=== PATIENT | female | born 1955 | race Caucasian/White ===

== ENCOUNTER 2019-11-20 13:15 | Outpatient (CLI) | payer OTHER, SELFPAY ==
--- NOTE | 2019-11-20 13:29 | MM_ITS ---
WS: [id number] BILATERAL DIGITAL SCREENING MAMMOGRAPHY WITH CAD CLINICAL INFORMATION: SCREENING HISTORY: Screening mammogram. No current complaints. COMPARISON: August 30, 2018 TECHNIQUE: Bilateral CC and MLO views. FINDINGS: Scattered fibroglandular densities bilaterally. Lucent centered calcifications. No suspicious focal m ass, asymmetry, calcifications, or architectural distortion. No evidence of malignancy. MM/[place] [id number] IMPRESSION: BI-RADS: 2-Benign FOLLOW UP: 1 Year Follow-up Recommend return to annual screening mammography.
== END 2019-11-20 13:16 | disposition home or self-care (01) ==
PROVIDERS: Family Provider Family Medicine; Visit Provider Family Medicine
DX: Z12.31 Encounter for screening mammogram for malignant neoplasm of breast (principal)
CPT/HCPCS: 77067

== ENCOUNTER 2020-07-24 14:44 | Emergency (ER) | payer OTHER, SELFPAY ==
[2020-07-24 14:45] VITALS: BP 155/73; PULSE 94; RESP 18; TEMP 36.7; O2SAT 94; BMI 32.5
--- NOTE | 2020-07-24 15:05 | ECG_ITS ---
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 Measurements Intervals [place] Rate: 84 P: 22 WY: 153 QRS: 34 QRSD: 86 T: 38 QT: 399 QTc: 474 Interpretive Statements SINUS RHYTHM No previous ECG available for comparison Electronically Signed On 07-24-2020 19:42:47 CDT by Boby Pappas M.D. [id number]
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
--- NOTE | 2020-07-24 15:07 | CT_ITS ---
WS: [id number] CT HEAD NONCONTRAST HISTORY: Gait instability TECHNIQUE: Contiguous axial imaging performed through the brain in 2.5 mm imaging. Bone and soft tiss ue windows. Sagittal and coronal reformats reviewed. All CT scans at use at ast one of these dose optimization techniques: automated exposure control; mA and/or kV adjustment pe r patient size (includes targeted exams where dose is matched to clinical indication); or iterative r econstruction. DLP: 2554.54 mGy.cm COMPARISON: 12/27/2015 No acute intracranial hemorrhage, midline shift or mass effect. Mild atrophy. Mild chronic microvascular ischemic changes, greatest surrounding the occipital horns o f the lateral ventricles. Mild progression since 2015. Bilateral basal ganglia calcifications. Ventricles: Normal size with no hydrocephalus. Paranasal sinuses: As visualized are clear. Mastoid air cells: Well pneumatized. Calvarium and scalp: Skull is intact with no soft tissue edema or swelling. CT/CT head wo con* 11818 IMPRESSION: 1. No acute intracranial hemorrhage. 2. Mild progression of chronic microvascular ischemic changes since 2015.
[2020-07-24 15:26] LABS: Basophils # 0.1 10^3/uL (0.0-0.1); Eosinophils % 0.5 %; Hematocrit 42.7 % (37.0-47.0); Hemoglobin 14.3 g/dL (11.5-15.3); Lymphocytes # 1.5 10^3/uL (0.8-4.8); Lymphocytes % 18.3 %; Mean Corpuscular HGB Conc 33.5 g/dL (30.0-36.0); Mean Corpuscular Hemoglobin 29.9 pg (28.0-34.0); Mean Corpuscular Volume 89.1 fL (81-99); Monocytes # 0.9 10^3/uL (0.2-0.9); Monocytes % 10.4 %; Neutrophils % 69.4 %; Nucleated Red Blood Cells % 0 %; Platelet Count 238 10^3/cmm (130-400); Red Blood Count 4.79 10^6/uL (4.1-5.3); Red Cell Distribution Width 12.7 % (12.1-15.1); White Blood Count 8.4 10^3/uL (4.0-10.0)
[2020-07-24 15:50] LABS: Troponin(5th) Baseline 10 ng/L (0-10)
--- NOTE | 2020-07-24 17:05 | ECG_ITS ---
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 Measurements Intervals [place] Rate: 78 P: 38 W[place]: 165 QRS: 48 QRSD: 83 T: 48 QT: 398 QTc: 454 Interpretive Statements SINUS RHYTHM Compared to ECG 07/24/2020 15:44:15 No significant changes Electronically Signed On 07-24-2020 19:43:57 CDT by Boby Pappas M.D. [email or web address] Americag. v. (sonny) montgomery va medical centerInfinite Power Solutionscleveland clinic south pointe hospital.[employer]/store/OM/[id number]
[2020-07-24 17:57] LABS: Alanine Aminotransferase 29 U/L (0-33); Albumin Level 4.1 g/dL (3.5-5.2); Alkaline Phosphatase 103 IU/L (35-105); Anion Gap 19.8 (5-19); Aspartate Amino Transferase 19 U/L (0-32); Blood Urea Nitrogen 7 mg/dL (8-23); Calcium 9.4 mg/dL (8.5-10.5); Carbon Dioxide 21 mmol/L (22-29); Chloride 103 mmol/L (98-107); Globulin 2.7 g/dL (1.3-4.6); Glomerular Filtration Rate 84.8 mL/min (90-130); Glucose 90 mg/dL (65-115); Osmolality Calculated 288 mOsm/kg (285-295); Potassium 3.8 mmol/L (3.5-5.1); Sodium 140 mmol/L (136-145); Thyroid Stimulating Hormone 0.38 uIU/mL (0.27-4.20); Total Bilirubin 0.4 mg/dL (0.15-1.2); Total Protein 6.8 g/dL (6.6-8.7)
[2020-07-24 18:04] LABS: Troponin 5 2HR 9.42 ng/L (0-10); Troponin 5 2HR Delta -0.58 ABS# (0-10)
[2020-07-24 18:13] VITALS: BP 143/87; PULSE 73; RESP 15; O2SAT 94
[2020-07-24 19:52] VITALS: BP 138/78; PULSE 93; RESP 16; O2SAT 100
== END 2020-07-24 19:53 | disposition home or self-care (01) ==
PROVIDERS: Emergency Provider Emergency Medicine; PCP Family Medicine
DX: F25.0 Schizoaffective disorder, bipolar type (principal); F17.210 Nicotine dependence, cigarettes, uncomplicated
CPT/HCPCS: 12345; 36415; 70450; 80053; 84443; 84484; 85025; 93005; 99283; 99284

== ENCOUNTER 2020-07-30 14:38 | Observation (INO) | payer OTHER, SELFPAY ==
[2020-07-30 14:40] VITALS: BP 101/72; PULSE 78; RESP 16; TEMP 36.7; O2SAT 96; BMI 32.5
[2020-07-30 15:22] LABS: Basophils # 0.1 10^3/uL (0.0-0.1); Basophils % 0.6 %; Eosinophils # 0.1 10^3/uL (0.0-0.8); Eosinophils % 1.2 %; Hematocrit 40.3 % (37.0-47.0); Hemoglobin 13.5 g/dL (11.5-15.3); Lymphocytes # 2.5 10^3/uL (0.8-4.8); Lymphocytes % 24.7 %; Mean Corpuscular HGB Conc 33.5 g/dL (30.0-36.0); Mean Corpuscular Hemoglobin 29.9 pg (28.0-34.0); Mean Corpuscular Volume 89.4 fL (81-99); Monocytes # 0.7 10^3/uL (0.2-0.9); Monocytes % 7.3 %; Neutrophils % 65.9 %; Nucleated Red Blood Cells % 0 %; Platelet Count 270 10^3/cmm (130-400); Red Blood Count 4.51 10^6/uL (4.1-5.3); Red Cell Distribution Width 12.3 % (12.1-15.1); White Blood Count 10.2 10^3/uL (4.0-10.0)
--- NOTE | 2020-07-30 15:34 | W.ED.AMS ---
HPI - Altered Mental Status General: Chief Complaint: Altered Mental Status Stated Complaint: CONFUSION, AMS, DIZZINESS Time Seen by Provider: 07/30/20 14:43 History of Present Illness: HPI narrative: This patient is a 64-year-old female who comes to the ED by ambulance today. She says her family members called the ambulance because she was shaking. She said the family members got frightened by her shaking. She is not really able to tell me anything more than that. She is confused and per observations by EMS and staff here in the ER she seems to be just randomly taking pills out of her purse and ingesting them. Her purse was removed from the room so that she could not continue to do that. She denies any concerns and said she feels fine. complaint: altered mental status and confusion Onset (ago): unknown Review of Systems General: Reports: ROS unobtainable due to mental status [facility] ED PFSH: Medical History Schizoaffective disorder, bipolar type Social History Smoking and tobacco status: current every day smoker cigarettes Packs smoked per day: 0.5 Current gender identity: Female Physical Exam Const: COMMON NORMALS: no acute distress and alert GENERAL APPEARANCE: cooperative and comfortable HENMT: HEAD & SCALP: normal to inspection FACE & SINUS: normal facial exam Eye: GENERAL EYE: appearance normal, both eyes and all related structures Neck/C-Spine: COMMON NORMALS: supple, no meningeal signs and no JVD Chest: COMMONS NORMALS: normal inspection of the chest Resp: COMMON NORMALS: normal respiratory effort, No use of accessory muscles and clear to auscultation bilaterally AUSCULTATION: clear to auscultation bilaterally Cardio: COMMON NORMALS: no JVD, regular rate, regular rhythm and No murmurs present (Cardio) RATE: regular rate RHYTHM: regular rhythm GI: COMMON NORMALS: Normal to inspection, nondistended, normoactive bowel sounds present, Soft to palpation and non-tender INSPECTION: Yes normal to inspection AUSCULTATION: Yes normoactive bowel sounds PALPATION: Yes Soft to palpation Back/Pelvis: COMMON NORMALS: thoracic and lumbar spine normal to inspection Extremity: COMMON NORMALS: normal to inspection Neuro: COMMON NORMALS: moves all extremities, no focal motor deficits and no sensory deficits noted SENSORIUM/ORIENTATION: Yes alert MENINGEAL SIGNS: Yes no meningeal signs Psych: COMMON NORMALS: mental status grossly normal, cooperative and normal affect ATTITUDE: Yes calm ACTIVITY/MOTOR BEHAVIOR: Yes disorganized behavior THOUGHT PROCESS: disorganized and confused Skin: COMMON NORMALS: no rashes or lesions noted and turgor normal GENERAL SKIN EXAM: no rashes or lesions noted and turgor normal Course ED course: This patient is probably not taking her medications right and she also has underlying psychiatric illness. She has normal vital signs and does not appear to be medically ill. She is hallucinating and seems somewhat delusional. I looked back through her mental health records and this seems to be a pattern for her. I spoke with Dr. Stubbs and he will accept her to the NPU. Her urine did suggest that there could be some infection but she denies dysuria. Culture has been sent and if that is positive she may need some antibiotics. Vital Signs: Vital signs: Vital Signs Temperature 97.8 F 07/30/20 17:52 Pulse Rate 76 07/30/20 17:52 Respiratory Rate 18 07/30/20 17:52 Blood Pressure 129/88 07/30/20 17:52 Pulse Oximetry 98 07/30/20 17:52 MDM - Altered Mental Status Lab Data: Labs: Lab Results 07/30/20 07/30/20 07/30/20 Range/Units 15:11 15:11 15:11 WBC 10.2 H (4.0-10.0) 10^3/ uL RBC 4.51 (4.1-5.3) 10^6/u L Hgb 13.5 (11.5-15.3) g/dL Hct 40.3 (37.0-47.0) % MCV 89.4 (81-99) fL MCH 29.9 (28.0-34.0) pg MCHC 33.5 (30.0-36.0) g/dL RDW 12.3 (12.1-15.1) % Plt Count 270 (130-400) 10^3/c mm MPV 11.0 H (7.4-10.4) fL Neut % (Auto) 65.9 % Lymph % (Auto) 24.7 % [place] % (Auto) 7.3 % Eos % (Auto) 1.2 % Baso % (Auto) 0.6 % Neut # (Auto) 6.70 (1.8-7.7) 10^3/u L Lymph # (Auto) 2.5 (0.8-4.8) 10^3/u L [place] # (Auto) 0.7 (0.2-0.9) 10^3/u L Eos # (Auto) 0.1 (0.0-0.8) 10^3/u L Baso # (Auto) 0.1 (0.0-0.1) 10^3/u L Nucleated RBC % (a uto) 0 % Nucleated RBCs # 0.0 /100WBC PT 14.20 (12.1-14.9) SECO NDS INR 1.06 (0.8-1.2) Sodium 140 (136-145) mmol/L Potassium 3.7 (3.5-5.1) mmol/L Chloride 106 (98-107) mmol/L Carbon Dioxide 23 (22-29) mmol/L Anion Gap 14.7 (5-19) BUN 21 (8-23) mg/dL Creatinine 0.7 (0.5-0.9) mg/dL GFR Calculation 84.8 L (90-130) mL/min Glucose 148 H (65-115) mg/dL Calculated Osmolal ity 296 H (285-295) mOsm/k g Calcium 8.9 (8.5-10.5) mg/dL Total Bilirubin 0.3 (0.15-1.2) mg/dL AST 35 H (0-32) U/L ALT 45 H (0-33) U/L Alkaline Phosphata se 87 (35-105) IU/L Total Protein 6.4 L (6.6-8.7) g/dL Albumin 3.7 (3.5-5.2) g/dL Globulin 2.7 (1.3-4.6) g/dL TSH 0.70 (0.27-4.20) uIU/ mL Urine Color (Yellow) Urine Appearance (CLEAR) Urine pH (5-7) Ur Specific Gravit y (1.005-1.030) Urine Protein (Negative) Urine Glucose (UA) (Normal) Urine Ketones (Negative) Urine Blood (Negative) Urine Nitrate (Negative) Urine Bilirubin (Negative) Urine Urobilinogen (Negative) mg/dL Ur Leukocyte Tahira ase (Negative) Urine RBC (0-2) /hpf Urine WBC (0-5) /hpf Ur Squamous Epith Cells (0-5) /hpf Amorphous Sediment /hpf Urine Bacteria (NONE) /hpf Urine Mucus /hpf Salicylates < 0.3 L (3-10) mg/dL Urine Opiates Scre en (Negative) ng/mL Acetaminophen < 5.0 L (10-30) ug/mL Ur Barbiturates Sc reen (Negative) ng/mL Ur Phencyclidine S crn (Negative) ng/mL Ur Amphetamines Sc reen (Negative) ng/mL U Benzodiazepines Scrn (Negative) ng/mL Urine Cocaine Scre en (Negative) ng/mL U Marijuana (THC) Screen (Negative) ng/mL Ethyl Alcohol < 10 (0-10) mg/dL 07/30/20 07/30/20 Range/Units 16:32 16:32 WBC (4.0-10.0) 10^3/ uL RBC (4.1-5.3) 10^6/u L Hgb (11.5-15.3) g/dL Hct (37.0-47.0) % MCV (81-99) fL MCH (28.0-34.0) pg MCHC (30.0-36.0) g/dL RDW (12.1-15.1) % Plt Count (130-400) 10^3/c mm MPV (7.4-10.4) fL Neut % (Auto) % Lymph % (Auto) % [place] % (Auto) % Eos % (Auto) % Baso % (Auto) % Neut # (Auto) (1.8-7.7) 10^3/u L Lymph # (Auto) (0.8-4.8) 10^3/u L [place] # (Auto) (0.2-0.9) 10^3/u L Eos # (Auto) (0.0-0.8) 10^3/u L Baso # (Auto) (0.0-0.1) 10^3/u L Nucleated RBC % (a uto) % Nucleated RBCs # /100WBC PT (12.1-14.9) SECO NDS INR (0.8-1.2) Sodium (136-145) mmol/L Potassium (3.5-5.1) mmol/L Chloride (98-107) mmol/L Carbon Dioxide (22-29) mmol/L Anion Gap (5-19) BUN (8-23) mg/dL Creatinine (0.5-0.9) mg/dL GFR Calculation (90-130) mL/min Glucose (65-115) mg/dL Calculated Osmolal ity (285-295) mOsm/k g Calcium (8.5-10.5) mg/dL Total Bilirubin (0.15-1.2) mg/dL AST (0-32) U/L ALT (0-33) U/L Alkaline Phosphata se (35-105) IU/L Total Protein (6.6-8.7) g/dL Albumin (3.5-5.2) g/dL Globulin (1.3-4.6) g/dL TSH (0.27-4.20) uIU/ mL Urine Color Yellow (Yellow) Urine Appearance Sl hazy (CLEAR) Urine pH 5 (5-7) Ur Specific Gravit y 1.030 (1.005-1.030) Urine Protein Neg (Negative) Urine Glucose (UA) Norm (Normal) Urine Ketones Negative (Negative) Urine Blood Neg (Negative) Urine Nitrate Negative (Negative) Urine Bilirubin 1+ H (Negative) Urine Urobilinogen 1 H (Negative) mg/dL Ur Leukocyte Tahira ase Negative (Negative) Urine RBC None (0-2) /hpf Urine WBC 0-4 H (0-5) /hpf Ur Squamous Epith Cells 5-10 H (0-5) /hpf Amorphous Sediment 3+ /hpf Urine Bacteria 3+ H (NONE) /hpf Urine Mucus 3+ /hpf Salicylates (3-10) mg/dL Urine Opiates Scre en Negative (Negative) ng/mL Acetaminophen (10-30) ug/mL Ur Barbiturates Sc reen Negative (Negative) ng/mL Ur Phencyclidine S crn Negative (Negative) ng/mL Ur Amphetamines Sc reen Negative (Negative) ng/mL U Benzodiazepines Scrn Positive H (Negative) ng/mL Urine Cocaine Scre en Negative (Negative) ng/mL U Marijuana (THC) Screen Negative (Negative) ng/mL Ethyl Alcohol (0-10) mg/dL Discharge Plan Discharge Patient Disposition: Admitted As Inpatient Admit Provider: Barrie Stubbs Discharge Date/Time: 07/30/20 17:43 Coding Level of Care Code ED Road Roller Operator Hot Mix for Chg Fwd Exam Comprehensive
[2020-07-30 15:43] LABS: INR 1.06 (0.8-1.2)
[2020-07-30 15:59] LABS: Acetaminophen < 5.0 ug/mL (10-30); Alanine Aminotransferase 45 U/L (0-33); Albumin Level 3.7 g/dL (3.5-5.2); Alkaline Phosphatase 87 IU/L (35-105); Blood Urea Nitrogen 21 mg/dL (8-23); Calcium 8.9 mg/dL (8.5-10.5); Carbon Dioxide 23 mmol/L (22-29); Chloride 106 mmol/L (98-107); Globulin 2.7 g/dL (1.3-4.6); Glomerular Filtration Rate 84.8 mL/min (90-130); Glucose 148 mg/dL (65-115); Osmolality Calculated 296 mOsm/kg (285-295); Salicylate < 0.3 mg/dL (3-10); Sodium 140 mmol/L (136-145); Total Bilirubin 0.3 mg/dL (0.15-1.2); Total Protein 6.4 g/dL (6.6-8.7)
[2020-07-30 16:00] LABS: Alcohol Level < 10 mg/dL (0-10); Anion Gap 14.7 (5-19); Aspartate Amino Transferase 35 U/L (0-32); Potassium 3.7 mmol/L (3.5-5.1)
[2020-07-30 16:47] LABS: Urine Color Yellow (Yellow)
[2020-07-30 16:48] LABS: Add Urine Microscopic? YES; Bilirubin Urine 1+ (Negative); Blood Urine Neg (Negative); Glucose Urine UA Norm (Normal); Ketones Urine Negative (Negative); Leukocyte Esterase Urine Negative (Negative); Nitrate Urine Negative (Negative); Protein Urine Neg (Negative); Urine Appearance SL Hazy (CLEAR); Urobilinogen Urine 1 mg/dL (Negative); pH Urine 5 (5-7)
[2020-07-30 16:51] LABS: Amorphous Sediment Urine 3+ /hpf; Bacteria Urine 3+ /hpf; Mucus Urine 3+ /hpf
[2020-07-30 16:52] LABS: Add Urine Culture? No; WBC Urine 0-4 /hpf (0-5)
[2020-07-30 16:53] LABS: Amphetamines Screen Urine Negative (Negative); Barbiturates Screen Urine Negative (Negative); Benzodiazepines Screen Urine Positive (Negative); Cocaine Screen Urine Negative (Negative); Opiate Screen Urine Negative (Negative); PCP Screen Urine Negative (Negative); THC Screen Urine Negative (Negative)
[2020-07-30 17:10] VITALS: BP 119/98; PULSE 76; RESP 26; O2SAT 94
[2020-07-30 17:42] VITALS: BP 119/98; PULSE 76; RESP 26; O2SAT 94
[2020-07-30 17:52] VITALS: BP 129/88; PULSE 76; RESP 18; TEMP 36.6; O2SAT 98
--- NOTE | 2020-07-30 18:18 | ECG_ITS ---
[facility] Test Date: 2020-07-30 Pat Name: Leisa Avila Department: Room: 129 Gender: Female Podiatric Medicine Professor: : 1955 Requested By: Dayanara Scales Order Number: [id number] Wade MD: Boby Pappas M.D. Measurements Intervals [place] Rate: 69 P: 13 MT: 163 QRS: 30 QRSD: 82 T: 22 QT: 439 QTc: 472 Interpretive Statements SINUS RHYTHM Compared to ECG 07/24/2020 17:30:23 No significant changes Electronically Signed On 07-30-2020 18:39:41 CDT by Boby Pappas M.D. [email or web address] a [email or web address] hospitalIncuvolakehealth tripoint medical centeriConclude/store/OM/[id number]
--- NOTE | 2020-07-30 18:38 | PC.NURSE ---
UPON ARRIVAL TO NPU FROM ER, PT NOTED TO HAVE IV IN LEFT LOWER ARM. IV REMOVED FROM LEFT LOWER ARM. PRESSURE APPLIED, 2X2 GAUZE & COBAN ALSO APPLIED TO SITE. ALL CANNULA INTACT. PT TOLERATED WELL.
[2020-07-30 19:31] LABS: Glucose Point of Care 131 mg/dL (70-110)
[2020-07-30] MEDS: hyDROXYzine 25 mg Capsule 50 MG PO (20:27)
[2020-07-30] MEDS: trazodone 50 mg Tablet PO (20:27)
[2020-07-30 21:00] VITALS: BP 112/57; PULSE 69; RESP 22; TEMP 36.9; O2SAT 94
--- NOTE | 2020-07-30 22:51 | PC.NURSE ---
ON ASSESSMENT BILATERAL LUNG SOUNDS ARE CLEAR THROUGHOUT, HEART SOUNDS NORMAL S1 & S2 WITHOUT MURMUR, BOWEL SOUNDS ARE PRESENT IN ALL FOUR QUADRANTS. PATIENT IS WONDERING THE HALLS THIS EVENING AND APPEARS NERVOUS. SHE ATTEMPTED TO CALL 07-09- FROM THE PATIENT PHONE BECAUSE SHE SAID SHE NEEDED TO GO HOME. SHE ATTEMPTED TO CALL THE SWITCHBOARD TO FIND OUT WHEN HER RIDE WOULD BE HERE TO TAKE HER HOME. SHE IS VERY CONFUSED AT TIMES. IT APPEARS THAT HER SHORT TERM MEMORY IS NOT INTACT. IN THE MIDDLE OF CONVERSATIONS SHE FORGETS TOPICS AND ASKS WHAT DID I JUST SAY. SHE DOESN'T SEEM TO BE EMBARRASSED ABOUT IT BUT IS DISMAYED BY THE FACT SHE CAN NOT RECALL THINGS WE JUST TALKED ABOUT. SHE CAME TO THE NURSES DESK WANTING TO LEAVE BECAUSE SHE THINKS SHE HAS AN APPOINTMENT WITH HER PHYSICIAN IN THE MORNING. I EXPLAINED TO HER THAT SHE WOULD SEE DR. ROSAS AND HE WOULD CONTINUE MEDICATIONS THAT SHE NEEDS AT THIS TIME. I STRESSED TO HER THAT A KOSHER BUTCHER WOULD HELP RESCHEDULE APPOINTMENTS FOR HER UPON RELEASE FROM THE UNIT. SHE WALKED HALF WAY TO HER ROOM, TURNED AROUND AND ASKED ME THE SAME QUESTIONS. I WROTE DOWN THIS INFORMATION FOR HER AND SHE WENT TO BED. SHE IS RESTING IN HIS ROOM AND APPEARS PEACEFUL AT THIS TIME.
[2020-07-31 06:00] VITALS: BP 98/52; PULSE 95; RESP 20; TEMP 37; O2SAT 94
[2020-07-31 06:43] LABS: Glucose Point of Care 108 mg/dL (70-110)
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
[2020-07-31] MEDS: fluoxetine 20 mg Capsule PO (13:15)
[2020-07-31 14:00] VITALS: BP 152/96; PULSE 79; RESP 18; TEMP 36.5; O2SAT 96
[2020-07-31] MEDS: sitagliptin 100 mg Tablet PO (15:32)
[2020-07-31] MEDS: ziprasidone hcl 40 mg Capsule 80 MG PO ×2 (15:32→20:57)
[2020-07-31] MEDS: CLONazepam 1 mg Tablet PO ×2 (15:32→20:57)
[2020-07-31 16:44] LABS: Glucose Point of Care 86 mg/dL (70-110)
--- NOTE | 2020-07-31 16:49 | PC.RESP ---
Smoking Cessation information sent to patient.
[2020-07-31 19:42] VITALS: BP 104/55; PULSE 70; RESP 12; TEMP 36.5; O2SAT 95
[2020-07-31] MEDS: gabapentin 300 mg Capsule PO (20:57)
[2020-07-31] MEDS: hyDROXYzine 25 mg Capsule 50 MG PO (21:01)
[2020-07-31] MEDS: trazodone 50 mg Tablet PO (21:01)
[2020-08-01] MEDS: acetaminophen 325 mg Tablet 650 MG PO (05:11)
--- NOTE | 2020-08-01 05:17 | PC.NURSE ---
patient states that she rolled out of bed and is having discomfort on right side 5 on a 1-10 scale. States she didn't hit anything , just twisted. Tylenol 650 mg given.
[2020-08-01 06:00] VITALS: BP 122/78; PULSE 65; RESP 16; TEMP 36.2; O2SAT 94
[2020-08-01 06:55] LABS: Glucose Point of Care 182 mg/dL (70-110)
[2020-08-01 07:34] LABS: Add Urine Microscopic? YES; Bilirubin Urine Neg (Negative); Blood Urine Neg (Negative); Glucose Urine UA Norm (Normal); Ketones Urine 1+ (Negative); Leukocyte Esterase Urine Trace (Negative); Nitrate Urine Negative (Negative); Protein Urine Neg (Negative); Urine Appearance Cloudy (CLEAR); Urine Color Yellow (Yellow); Urobilinogen Urine 1 mg/dL (Negative); pH Urine 5 (5-7)
[2020-08-01 07:35] LABS: RBC Urine RARE /hpf (0-2)
[2020-08-01 07:36] LABS: Add Urine Culture? No; Bacteria Urine 2+ /hpf; Squamous Epithelial Cell Urine 25-40 /hpf (0-5)
[2020-08-01] MEDS: nicotine 21 mg Patch 1 PATCH TRANSDERMA (09:05)
[2020-08-01] MEDS: meloxicam 7.5 mg tablet 15 MG PO (09:05)
[2020-08-01] MEDS: glimepiride 2 mg Tablet 6 MG PO (09:05)
[2020-08-01] MEDS: sitagliptin 100 mg Tablet PO (09:05)
[2020-08-01] MEDS: CLONazepam 1 mg Tablet PO (09:05)
[2020-08-01] MEDS: fluoxetine 20 mg Capsule PO (09:05)
[2020-08-01] MEDS: ziprasidone hcl 40 mg Capsule 80 MG PO (09:05)
[2020-08-01] MEDS: buPROPion SR (12 HR) 100 mg Tablet 200 MG PO (09:06)
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
[2020-08-01 10:40] VITALS: BP 122/78; PULSE 65; RESP 16; TEMP 36.2; O2SAT 94
== END 2020-08-01 11:08 | disposition home or self-care (01) ==
LOC: ER 15:22 → NP 07-31 10:38
PROVIDERS: Emergency Medicine; Admitting Provider Psychiatry & Neurology Psychiatry; PCP Family Medicine; Visit Provider Psychiatry & Neurology Psychiatry
DX: F25.0 Schizoaffective disorder, bipolar type (principal); F41.9 Anxiety disorder, unspecified; F17.210 Nicotine dependence, cigarettes, uncomplicated; Z81.8 Family history of other mental and behavioral disorders; E11.9 Type 2 diabetes mellitus without complications
CPT/HCPCS: 12345; 36415; 36416; 80053; 80306; 80307; 81001; 82962; 84443; 85025; 85610; 93005; 99283; 99285; G0378

== ENCOUNTER → 2020-09-18 14:37 | Outpatient (BNVA) | payer OTHER, SELFPAY | PROVIDERS: PCP Family Medicine; Referring Provider Registered Nurse; Visit Provider Registered Nurse | DX: Z79.899 Other long term (current) drug therapy (principal) | CPT/HCPCS: 36415; 80061; 85025 ==

== ENCOUNTER → 2020-09-20 13:38 | Outpatient (BNVA) | payer OTHER, SELFPAY | PROVIDERS: PCP Family Medicine; Referring Provider Registered Nurse; Visit Provider Registered Nurse | DX: F25.0 Schizoaffective disorder, bipolar type (principal); Z79.899 Other long term (current) drug therapy | CPT/HCPCS: 83036 ==

== ENCOUNTER 2021-05-27 11:58 | Outpatient (CLI) | payer OTHER, SELFPAY ==
[2020-09-23 11:09] VITALS: BP 120/82; BMI 34.6
--- NOTE | 2021-05-27 12:01 | XR_ITS ---
WS: [id number] Left knee, 3 views, 05/27/2021 Clinical Data: PAIN IN LEFT KNEE Comparison: None. Findings: No new fractures or dislocations are seen. There is osteoarthritis of the medial tibial plateau with fragmentation which may relate to an old injury. There is medial joint compartment narrowing. There a re osteophytes of the lateral femoral condyle and lateral tibial plateau. There is a calcification ad jacent to the lateral femoral condyle which may be from old injury. There is posterior calcification of the left patella. The soft tissues are unremarkable. XR/XR knee LT 3V* [id number] Impression: 1. Moderate osteoarthritis of the left knee joint with narrowing of the medial joint compartment and posterior left patellar spurring. 2. Fragmentation of the medial tibial plateau from an old injury. 3. Calcification adjacent to the lateral femoral condyle from chronic injury. Kellgren-Narayan Classification: grade 3 (moderate): moderate multiple osteoph ytes, definite narrowing of joint space and some sclerosis and possible deformi ty of bone ends
== END 2021-05-27 11:59 | disposition home or self-care (01) ==
LOC: RAD 12:00
PROVIDERS: PCP Family Medicine; Visit Provider Family Medicine
DX: M17.12 Unilateral primary osteoarthritis, left knee (principal)
CPT/HCPCS: 73562

== ENCOUNTER → 2021-11-04 13:04 | Outpatient (BNVA) | payer OTHER, SELFPAY ==
[2020-09-23 11:09] VITALS: BP 120/82; BMI 34.6
== END ==
PROVIDERS: PCP Family Medicine; Visit Provider Nurse Practitioner Psychiatric/Mental Health
DX: Z79.899 Other long term (current) drug therapy (principal)
CPT/HCPCS: 80061; 83036

== ENCOUNTER → 2022-11-10 11:39 | Outpatient (BNVA) | payer MEDICARE, OTHER, SELFPAY ==
[2020-09-23 11:09] VITALS: BP 120/82; BMI 34.6
== END ==
PROVIDERS: PCP Family Medicine; Visit Provider Nurse Practitioner Psychiatric/Mental Health
DX: Z79.899 Other long term (current) drug therapy (principal)
CPT/HCPCS: 80053; 80061; 83036

== ENCOUNTER → 2023-07-08 13:27 | Outpatient (BNVA) | payer OTHER, SELFPAY ==
[2020-09-23 11:09] VITALS: BP 120/82; BMI 34.6
== END ==
PROVIDERS: PCP Family Medicine; Visit Provider Nurse Practitioner Psychiatric/Mental Health
DX: F25.0 Schizoaffective disorder, bipolar type (principal); F41.9 Anxiety disorder, unspecified; Z79.899 Other long term (current) drug therapy
CPT/HCPCS: 80061; 83036

== ENCOUNTER → 2023-12-14 12:33 | Outpatient (BNVA) | payer MEDICARE, SELFPAY ==
[2023-07-19 15:46] VITALS: BP 160/92; BMI 33.2
== END ==
PROVIDERS: PCP Family Medicine; Visit Provider Nurse Practitioner Psychiatric/Mental Health
DX: Z79.899 Other long term (current) drug therapy (principal); F25.0 Schizoaffective disorder, bipolar type; F41.9 Anxiety disorder, unspecified
CPT/HCPCS: 80053; 80061; 83036; 84439; 84443; 85025

== ENCOUNTER → 2024-12-12 13:03 | Outpatient (BNVA) | payer MEDICARE, OTHER, SELFPAY ==
[2023-07-19 15:46] VITALS: BP 160/92; BMI 33.2
== END ==
PROVIDERS: PCP Family Medicine; Visit Provider Nurse Practitioner Psychiatric/Mental Health
DX: F25.0 Schizoaffective disorder, bipolar type (principal); F41.9 Anxiety disorder, unspecified; Z79.899 Other long term (current) drug therapy
CPT/HCPCS: 80053; 80061; 83036

== ENCOUNTER 2025-09-08 16:40 | Emergency (ER) | payer MEDICARE, OTHER, SELFPAY ==
[2023-07-19 15:46] VITALS: BP 160/92; BMI 33.2
--- OUTSIDE RECORDS SUMMARY | 2025-09-08 16:47 | XMS_ITS | Clinical Summary ---
Author Organization [facility] Address [address] [place] [address] Phone Care Team Providers Care Sushi Chef Name Role Phone Shoshana Swann MD Primary Care Provider [phone] Allergies Active Allergy Reactions Criticality Noted Date Comments Sulfa (Sulfonamide Antibiotics) Unknown 11/2023 Medications ASCORBATE CALCIUM ORAL Take 500 mg by mouth daily. Active buPROPion HCL (WELLBUTRIN SR) 200 mg Sustained Release 12 hour tablet Take 200 mg by mouth daily. Active dulaglutide (Trulicity) 1.5 mg/0.5 mL injection Inject 1.5 mg by subcutaneous injection every 7 days. Active FLUoxetine (PROzac) 40 mg capsule Take 80 mg by mouth daily. Active gabapentin (NEURONTIN) 300 mg capsule Take 300 mg by mouth daily at bedtime. Active glimepiride (AMARYL) 4 mg tablet Take 4 mg by mouth daily with breakfast. Active hydrOXYzine HCL (ATARAX) 50 mg tablet Take 50 mg by mouth 2 times daily as needed for Itching. Active LACTOBACILLUS COMBINATION NO.8 ORAL Take 1 Cells by mouth daily. Active liothyronine (CYTOMEL) 25 mcg Tablet Take 25 mcg by mouth daily. Active meloxicam (MOBIC) 15 mg tablet Take 15 mg by mouth daily. Active trihexyphenidyL (ARTANE) 5 mg tablet Take 5 mg by mouth 3 times daily. Active ziprasidone (GEODON) 80 mg Capsule Take 80 mg by mouth 2 times daily with meals. Active Social History Tobacco Use Types Packs/Day Years Used Date Smoking Tobacco: Never Tobacco Cessation:Counseling Given: Not Answered Alcohol Use Standard Drinks/Week Comments Never 0 (1 standard drink = 0.6 oz pur e alcohol) Feeling Safe Answer Date Recorded Are you in a relationship wi th someone who hurts you emotionally and/or physically? No 06/08/2024 Comments Unknown Sex and Gender Information Value Date Recorded Sex Assigned at Not on file Legal Sex Female 1:58 PM CDT Gender Identity Not on file Sexual Orientation Not on file Last Filed Vital Signs Vital Sign Reading Time Taken Comments Blood Pressure 142/68 06/08/2024 5:00 PM CDT Pulse 73 06/08/2024 5:00 PM CDT Temperature 36.7 C (98 F) 06/08/2024 2:05 PM CDT Respiratory Rate 20 06/08/2024 4:45 PM CDT Oxygen Saturation 92% 06/08/2024 5:00 PM CDT Inhaled Oxygen Concentration - - Weight 91.2 kg (201 lb 1.6 oz) 06/08/2024 2:05 P M CDT Height 162.6 cm (5' 4 ) 06/08/2024 2:05 PM CDT Body Mass Index 34.52 06/08/2024 2:05 PM CDT Plan of Treatment Health Maintenance Due Date Last Done Comments DTAP/TDAP/TD VACCINES (1 - Tdap) 1976 BREAST CANCER SCREENING 1997 COLORECTAL SCREENING 2002 Colorectal Cancer Screening 2002 FIT-DNA Q 3 years 2002 FIT/FOBT Q 1 year 2002 Flex Sig/CT Colonography Q 5 years 2002 PNEUMOCOCCAL VACCINE 50+ YEARS (1 of 1 - PCV) 08/24/20 07 ZOSTER VACCINE (1 of 2) 2007 OSTEOPOROSIS SCREENING 2022 INFLUENZA VACCINE (#1) 2025 RSV VACCINE (60+ or ) (1 - 1-dose 75+ series) [address] [place] [id number] [employer] Care Teams Sushi Chef Relationship Specialty Start Date End Date Shoshana Swann MD [address] [place] [address] PCP - General Family Practice 06/08/24
[2025-09-08 16:50] VITALS: BP 149/74; PULSE 89; RESP 17; TEMP 36.6; O2SAT 92
--- NOTE | 2025-09-08 17:00 | W.ED.BACK ---
HPI - Back Pain/Injury General: Chief Complaint: Back Pain/Injury Stated Complaint: pain in both hips radiating downward Time Seen by Provider: 09/08/25 16:57 History of Present Illness: Selected Entries 09/08/25 16:50 ED Triage Comment c/o lower back/ si joint pain that r adiates down bilat legs . Pt states that the pain is so bad that she godwin s been crawling to the kitchen in th e am. Rates . Sharp and achy. SHe reports taki ng Meloxicam, isis pentin. Patient presents to the emergency room with 1 month of low back pain. This is bilateral L4-L5 area. No midline tenderness. No history of injury. She has been to her primary care physician initially was prescribed meloxicam. On return, she was placed on gabapentin. She stated her doctor told her she could take up to 3 a day, however she was too scared to do that. She was under the impression gabapentin was a muscle relaxer. Associated symptoms: Deny abdominal pain, chills, fever(s), nausea or vomiting Related Data Home Medications ?Medication ?Instructions ?Recorded ?Confirmed dulaglutide 1.5 mg/0.5 mL 1.5 mg SUBCUT Q7D 01/17/20 06/19/25 subcutaneous pen injector (Trulicity) gabapentin 300 mg capsule 300 mg PO BEDTIME 01/17/20 06/19/25 glimepiride 4 mg tablet (Amaryl) 6 mg PO DAILY 01/17/20 06/19/25 meloxicam 15 mg tablet 15 mg PO DAILY 01/17/20 06/19/25 liothyronine 25 mcg tablet 25 mcg PO DAILY 07/24/20 06/19/25 (Cytomel) liothyronine 25 mcg tablet 25 mcg PO DAILY 07/31/20 06/19/25 ascorbate calcium (vitamin C) 500 500 mg PO DAILY 08/26/21 06/19/25 mg tablet lactobacillus combination no.8 3 1 cell PO DAILY 08/26/21 06/19/25 billion cell capsule Previous Rx's ?Medication ?Instructions ?Recorded olanzapine 5 mg disintegrating 5 mg PO DAILY PRN hallucinations 03/30/25 tablet #90 tabs bupropion HCl 200 mg tablet,12 hr 200 mg PO QAM #90 tabs 06/19/25 sustained-release (Wellbutrin SR) fluoxetine 40 mg capsule 80 mg (2 x 40 mg) PO QAM #180 caps 06/19/25 hydroxyzine pamoate 50 mg capsule 50 mg PO BID PRN anxiety/insomnia 06/19/25 #180 caps ziprasidone HCl 80 mg capsule 80 mg PO BID #180 caps 06/19/25 methocarbamol 500 mg tablet 500 mg PO Q8H PRN muscle spasm #30 09/08/25 tabs methylprednisolone 4 mg tablets in See Rx Instructions PO .COMPLEX 09/08/25 a dose pack (Medrol (Tomas)) #21 ea Allergies Allergy/AdvReac Type Severity Reaction Status Date / Time Sulfa (Sulfonamide Allergy Unknown Unknown Verified 09/08/25 16:54 Antibiotics) Review of Systems Const: Denies: fever(s) or chills Card: Denies: chest pain or dyspnea on exertion Resp: Denies: dyspnea or productive cough GI: Denies: abdominal pain, nausea or vomiting : Denies: difficulty voiding Musc: Reports: back pain, joint pain and joint stiffness; Denies: neck pain, extremity pain, extremity swelling, joint swelling or limited range of motion Skin/Breast: Denies: changes in skin color or dry skin Neuro: Denies: numbness in extremities or weakness in extremities Psych: Denies: anxiety Duarte/Lymph: Denies: easy bruising or easy bleeding [facility] ED PFSH: Medical History (Updated 09/08/25 @ 17:12 by LISE Guy) Psychiatric care Schizoaffective disorder, bipolar type Social History Smoking and tobacco/nicotine status: former use of tobacco/nicotine Quit status (tobacco/nicotine): has quit using Year quit tobacco: 09/2021 Second hand smoke exposure: No Current gender identity: Female Physical Exam Const: COMMON NORMALS: no acute distress, average body habitus and patient oriented x3 HENMT: COMMON NORMALS: normocephalic and atraumatic HEAD & SCALP: normocephalic and atraumatic Neck/C-Spine: COMMON NORMALS: full ROM, no lymphadenopathy, supple and no meningeal signs Chest: COMMONS NORMALS: normal inspection of the chest and normal palpation of entire chest wall Resp: COMMON NORMALS: normal respiratory effort, No retractions and No use of accessory muscles Cardio: COMMON NORMALS: regular rate and regular rhythm RATE: regular rate RHYTHM: regular rhythm GI: COMMON NORMALS: Normal to inspection, nondistended, normoactive bowel sounds present, Soft to palpation, non-tender and No hepatosplenomegaly present PALPATION: Yes Soft to palpation and Yes No hepatosplenomegaly present : COMMON NORMALS: Yes no CVA tenderness BLADDER/KIDNEY EXAM: Yes no CVA tenderness Back/Pelvis: COMMON NORMALS: no CVA tenderness LUMBAR SPINE/LOWER BACK: No lumbar spinal tenderness, Yes paraspinal muscle tenderness Lumbar paraspinal muscle tenderness: right Right lumbar paraspinal muscle tenderness: L3, L4 and L5 and left left lumbar paraspinal muscle tenderness: L3, L4 and L5 and Yes straight leg raise negative bilaterally Extremity: COMMON NORMALS: normal to inspection, full ROM and capillary refill normal Neuro: COMMON NORMALS: patient oriented x3 MENINGEAL SIGNS: Yes no meningeal signs Psych: COMMON NORMALS: mental status grossly normal, Normal thought process present and cooperative THOUGHT PROCESS: Normal thought process present Course Vital Signs: Vital signs: Vital Signs Temperature 97.9 F 09/08/25 16:50 Pulse Rate 80 09/08/25 17:51 Respiratory Rate 16 09/08/25 17:51 Blood Pressure 148/89 09/08/25 17:51 Pulse Oximetry 95 09/08/25 17:51 Oxygen Delivery Me thod Room Air 09/08/25 16:50 MDM - Back Pain/Injury Medical Decision Making Patient is 70-year-old female that has exam consistent with right sciatica. There is no sensation changes. No additional history of trauma. Exam is consistent with chronic ongoing, frustrating issue. Patient will follow-up with primary care regarding current issues, and has been treated with Toradol/Norflex,/dexamethasone, and Medrol Dosepak has been sent to the pharmacy. Medical Records I reviewed the patient's medical records. No radiology studies performed this visit Discharge Plan Discharge Patient Disposition: Home Clinical Impression: Lumbar radiculopathy Condition: Stable Prescriptions: New methocarbamol 500 mg tablet 500 mg PO Q8H PRN (Reason: muscle spasm) Qty: 30 0RF methylprednisolone [Medrol (Tomas)] 4 mg tablets,dose pack See Rx Instructions .ROUTE .COMPLEX Qty: 21 0RF Rx Instructions: for 6 days No Action Trulicity 1.5 mg/0.5 mL pen injector 1.5 mg SUBCUT Q7D Rx Instructions: PT UNABLE TO VERIFY MEDS DUE TO AMS - RX FILLED 05/12/2020 gabapentin 300 mg capsule 300 mg PO BEDTIME Rx Instructions: PT UNABLE TO VERIFY MEDS DUE TO AMS - 05/06/2020 glimepiride [Amaryl] 4 mg tablet 6 mg PO DAILY Rx Instructions: PT UNABLE TO VERIFY MEDS DUE TO AMS - 06/05/2020 meloxicam 15 mg tablet 15 mg PO DAILY Rx Instructions: PT UNABLE TO VERIFY MEDS DUE TO AMS RX FILLED 05/19/2020 FOR 90 DAYS lactobacillus combination no.8 3 billion cell capsule 1 cell PO DAILY ascorbate calcium (vitamin C) 500 mg tablet 500 mg PO DAILY ziprasidone HCl 80 mg capsule 80 mg PO BID Qty: 180 0RF Rx Instructions: Take one capsule twice a day-give with meal/snack of at least 350 calories bupropion HCl [Wellbutrin SR] 200 mg tablet sustained-release 12 hr 200 mg PO QAM Qty: 90 0RF Rx Instructions: Take one tablet by mouth every morning fluoxetine 40 mg capsule 80 mg PO QAM Qty: 180 0RF Rx Instructions: Take two capsules by mouth every morning hydroxyzine pamoate 50 mg capsule 50 mg PO BID PRN (Reason: anxiety/insomnia) Qty: 180 0RF Rx Instructions: Take one capsule twice a day, at least four hours apart, if needed for anxiety olanzapine 5 mg tablet,disintegrating 5 mg PO DAILY PRN (Reason: hallucinations) Qty: 90 0RF Rx Instructions: Dissolve one tablet beneath the tongue once daily, if needed for hallucinations liothyronine 25 mcg Tablet 25 mcg PO DAILY liothyronine [Cytomel] 25 mcg tablet 25 mcg PO DAILY Rx Instructions: PT UNABLE TO VERIFY MEDS DUE TO AMS Discharge Orders: Discharge ED (Routine); Ordered 09/08/25 Ordered By: Rowena Enriquez Referrals: Martha Bustos NP [Primary Care Provider, Unknown] Discharge Diet: Usual diet Discharge Activity: Resume usual activity Patient Instructions: Back Pain (ED), Patient Portal & Joy Instructions Activity Restrictions/Additional Instructions: - Call on Wednesday to follow-up with your doctor. There are additional testing that needs to be done that she could consider. Follow-up with your x-ray 09/18. - Return to ED with worsening pain that is associated with sensory changes, groin numbness, incontinence of urine or feces. -At the pharmacy: Medrol Dosepak, muscle relaxer which is called Robaxin/methocarbamol. Use as directed. - With the gabapentin: This is a peripheral nerve spasm medication. This helps with that radiculopathy pain. We discussed she is using 300 mg at night, second night going to 600 mg (which you can do tonight), and the third night 900 mg. Thank you for choosing [facility] for your healthcare needs today. You have been screened and evaluated and felt safe for discharge. Health conditions do change or evolve sometimes and as such it is important that you follow up with your Primary Doctor to be re checked, 3-5 days is a general good time frame for follow up. You are always welcome to return to the ED for re assessment if your symptoms are worsening or you have new concerns Print Language: Malay Coding Level of Care Code ED Hand Singer for Erica Kraus
[2025-09-08] MEDS: orphenadrine 30 mg/mL Inj 2 mL IM (17:32)
[2025-09-08 17:51] VITALS: BP 148/89; PULSE 80; RESP 16; O2SAT 95
== END 2025-09-08 17:50 | disposition home or self-care (01) ==
PROVIDERS: Emergency Provider Physician Assistant; PCP Nurse Practitioner Family
DX: M54.16 Radiculopathy, lumbar region (principal); Z79.85 Long-term (current) use of injectable non-insulin antidiabetic drugs; Z87.891 Personal history of nicotine dependence
CPT/HCPCS: 96372; 99284; J1100; J1885; J2360

== ENCOUNTER 2025-09-18 11:57 | Outpatient (CLI) | payer MEDICARE, OTHER, SELFPAY ==
[2023-07-19 15:46] VITALS: BP 160/92; BMI 33.2
--- NOTE | 2025-09-18 12:05 | CT_ITS ---
WS: [id number] LDCT LUNG CANCER SCREENING HISTORY: HISTORY OF TOBACCO USE TECHNIQUE: Axial imaging performed from the apices to 1 cm below the costophrenic angles. Coronal and sagittal reformats are submitted with axial MIP series. All CT scans at [facility] use at least one of these dose optimization techniques: automated exposure control; mA and/or kV adjustment per patient size (includes targeted exams where dose is matched to clinical indication); or iterative reconstruction. DLP: 141.61 mGy.cm DIvol: Mean CTDIvol: 3.30 (mGy) COMPARISON: None available. Diagnostic quality: Satisfactory Lungs: 5 mm groundglass nodule LEFT upper lobe. Benign calcified granuloma near the RIGHT minor fissure. No mass or nodule. No pneumonia or endobronchial lesions. Heart: Normal size heart with no pericardial effusion.. Other findings: Calcified hilar and mediastinal lymph nodes. Mild atherosclerosis aorta. No aneurysm. Small hiatal hernia. No adrenal mass. Prior cholecystectomy. CT/CT lung screening [id number] IMPRESSION: LUNG-RADS: 2-Benign Appearance or Behavior FOLLOW UP: 12 Month: Continue annual screening with LDCT OTHER FINDINGS (S MODIFIER): None.
--- NOTE | 2025-09-18 12:06 | XRR_ITS ---
PROCEDURE INFORMATION: Exam: XR Lumbosacral Spine Exam date and time: 09/18/2025 12:26 PM Age: 70 years old Clinical indication: Low back pain; Additional info: Pain in R thigh/other abnormalities of gait mobility TECHNIQUE: Imaging protocol: Radiologic exam of the lumbosacral spine. Views: 2 or 3 views. COMPARISON: No relevant prior studies available. FINDINGS: Bones/joints: Dextroconvex curvature of the lower lumbar spine. Grade 1 anterolisthesis of L3 on L4. Grade 2 anterolisthesis of L4 on L5. Pronounced degenerative endplate changes at L3-L4 and L4-L5. Facet arthropathy in the lower lumbar spine. Soft tissues: Upper abdominal surgical clips. XR/XR lumbar spine 2-3V* [id number] IMPRESSION: Advanced degenerative changes with spondylolistheses.
== END 2025-09-18 11:58 | disposition home or self-care (01) ==
LOC: RAD 12:00
PROVIDERS: PCP Nurse Practitioner Family; Visit Provider Nurse Practitioner Family
DX: Z12.2 Encounter for screening for malignant neoplasm of respiratory organs (principal); Z87.891 Personal history of nicotine dependence; R91.1 Solitary pulmonary nodule; J84.10 Pulmonary fibrosis, unspecified; I70.0 Atherosclerosis of aorta; K44.9 Diaphragmatic hernia without obstruction or gangrene; Z90.49 Acquired absence of other specified parts of digestive tract; R59.0 Localized enlarged lymph nodes
CPT/HCPCS: 71271; 72100

== ENCOUNTER → 2025-10-23 09:56 | Outpatient (BNVA) | payer MEDICARE, OTHER, SELFPAY ==
[2025-10-23 10:47] VITALS: BP 160/92; BMI 33.2
== END ==
PROVIDERS: PCP Nurse Practitioner Family; Referring Provider Nurse Practitioner Family; Visit Provider Anesthesiology Pain Medicine
DX: M43.16 Spondylolisthesis, lumbar region (principal)
CPT/HCPCS: 99204